=== PATIENT | female | born 1950 | race Caucasian/White ===

== ENCOUNTER 2016-11-14 10:59 | Inpatient (IN) | payer OTHER ==
[~2016-11-14] VITALS: Ht 157.5 cm; Wt 103.1 kg
[~2016-11-14 10:59] MED LIST: AMLODIPINE-VAL1 EAC1 PO; APRESOLINE50 MG PO; AUGMENTIN875 MG PO; BYSTOLIC5 MG PO; CLOPIDOGREL75 MG PO; EXFORGE 10/11 TABLET PO; HYDROCHLOROTHIA50 MG PO; K-Dur PO; LISINOPRIL10 MG PO; LOPRESSOR25 MG PO; NICOTINE PATCH1 EAC1 TD; NIFEDIPINE ER60 MG PO; NOHOMEMEDS; Norvasc PO; PRAVASTATIN SOD40 MG PO; PREDNISONE10 MG PO; PROVENTIL HFA6.7 GM IH
[2016-11-14 12:23] LABS: EOSINOPHIL (%) 0.1 % (0-5); HEMATOCRIT 51.8 % (36.0-46.0); IMMATURE GRANULOCYTE (%) 0.4 % (0.0-0.7); IMMATURE GRANULOCYTE COUNT 0.1 K/uL; INSTRUMENT ABS NEUTROPHIL CT 10.3 K/uL; LYMPHOCYTE COUNT 1.1 K/uL (1.0-2.8); MCH 25.6 PG (29.0-34.0); MCHC 31.5 G/DL (30.0-36.0); MCV 81.4 FL (83-99); MEAN PLAT.VOLUME 9.8 uM^3 (9.5-12.4); MONOCYTE (%) 3.9 % (3-12); MONOCYTE COUNT 0.5 K/uL (0-0.8); NEUTROPHIL (%) 86.3 % (45-76); NEUTROPHIL COUNT 10.3 K/uL (1.8-6.4); PLATELET COUNT 251 K/uL (156-360); RBC DIS.WIDTH-CV 14.7 % (11.8-14.6); RBC DIS.WIDTH-SD 42.5 % (39-53); RED BLOOD COUNT 6.36 M/uL (3.80-5.20); WHITE BLOOD COUNT 11.9 K/uL (4.1-10.2)
[2016-11-14 12:33] LABS: CHLORIDE 98 mEq/L (99-109); POTASSIUM 4.2 mEq/L (3.7-5.4); SODIUM 136 mEq/L (136-147)
[2016-11-14 12:35] LABS: GLUCOSE 115 mg/dL (70-99)
[2016-11-14 12:37] LABS: ANION GAP 17 MEQ/L (2-14)
[2016-11-14 12:39] LABS: GFR ESTIMATE (CALCULATED) > 59 mL/min/
[2016-11-14 12:40] LABS: UREA NITROGEN (BUN) 8 mg/dL (9-23)
[2016-11-14 12:43] LABS: TROP-I INTERPRETATION NEGATIVE; TROPONIN-I 0.03 ng/mL (0.0-0.30)
[2016-11-14 14:08] LABS: ADD MIUA? YES; BILIRUBIN NEGATIVE; BLOOD SMALL; COLOR YELLOW ((YELLOW)); GLUCOSE (STRIP) 150; KETONES NEGATIVE; LEUKOCYTES NEGATIVE; NITRITE NEGATIVE; PROTEIN (STRIP) 100; SPECIFIC GRAVITY 1.015 (1.000-1.030); UROBILINOGEN 0.2 MG/DL (0.2-1.0)
[2016-11-14 14:16] LABS: BACTERIA 3+ /HPF; EPITHELIAL CELLS RARE /HPF; HYALINE CASTS 15-20 /LPF; MUCUS NONE SEEN /LPF; RED BLOOD CELLS 0-5 /HPF (0-5); WHITE BLOOD CELLS CLUMP FEW /HPF (0-5)
[2016-11-14] MEDS ORDERED: PLAVIX75 MG PO (16:07)
[2016-11-14] MEDS ORDERED: LOVASTATIN20 MG PO (16:08)
[2016-11-14] MEDS ORDERED: PRAVACHOL40 MG PO (16:08)
[2016-11-14] MEDS ORDERED: LOPRESSOR25 MG PO (16:08)
[2016-11-14] MEDS ORDERED: LISINOPRIL10 MG PO (16:09)
[2016-11-14] MEDS ORDERED: NIFEDIPINE ER60 MG PO (16:09)
[2016-11-14] MEDS ORDERED: APRESOLINE50 MG PO (16:10)
[2016-11-14 21:59] VITALS: BP 200/110
[2016-11-14 23:20] VITALS: BP 187/118
[2016-11-15 00:24] VITALS: BP 190/93
[2016-11-15 05:56] LABS: HEMATOCRIT 46.3 % (36.0-46.0); MCH 26.6 PG (29.0-34.0); MCHC 32.6 G/DL (30.0-36.0); MCV 81.5 FL (83-99); MEAN PLAT.VOLUME 10.6 uM^3 (9.5-12.4); PLATELET COUNT 283 K/uL (156-360); RBC DIS.WIDTH-CV 15.3 % (11.8-14.6); RBC DIS.WIDTH-SD 44.6 % (39-53); RED BLOOD COUNT 5.68 M/uL (3.80-5.20); WHITE BLOOD COUNT 11.1 K/uL (4.1-10.2)
[2016-11-15 06:03] VITALS: BP 189/84
[2016-11-15 06:27] LABS: ANION GAP 10 MEQ/L (2-14); CHLORIDE 100 MEQ/L (99-109); GFR ESTIMATE (CALCULATED) 47 mL/min/; GLUCOSE 132 mg/dL (70-99); HDL CHOLESTEROL 39 MG/DL (Desirable>=50); LDL CHOLESTEROL 146 mg/dL (Desirable<100); NON-HDL CHOLESTEROL 174 mg/dL (Desirable<160); SAMPLE HEMOLYSIS CHECK 1; SAMPLE ICTERIC CHECK 0; SAMPLE LIPEMIA CHECK 0; SODIUM 137 MEQ/L (136-147); TOTAL CHOLESTEROL 213 mg/dL (Desirable<200); TRIGLYCERIDES 141 MG/DL (Normal: <150)
[2016-11-15 06:28] LABS: UREA NITROGEN (BUN) 21 mg/dL (9-23)
[2016-11-15 07:13] VITALS: BP 124/58
[2016-11-15 07:40] LABS: Estimated Average Glucose 117 mg/dL (70-123); HEMOGLOBIN A1c (GLYCOHEMOGLOB) 5.7 % HGB (Below 5.7)
[2016-11-15 11:16] VITALS: BP 137/67
[2016-11-15 15:24] VITALS: BP 163/83
[2016-11-15 20:05] VITALS: BP 132/67
[2016-11-16 04:02] VITALS: BP 143/70
[2016-11-16 06:13] LABS: EOSINOPHIL (%) 0.2 % (0-5); HEMATOCRIT 45.9 % (36.0-46.0); IMMATURE GRANULOCYTE (%) 0.5 % (0.0-0.7); LYMPHOCYTE COUNT 1.1 K/uL (1.0-2.8); MCH 25.7 PG (29.0-34.0); MCHC 31.2 G/DL (30.0-36.0); MCV 82.4 FL (83-99); MEAN PLAT.VOLUME 10.2 uM^3 (9.5-12.4); MONOCYTE (%) 2.5 % (3-12); MONOCYTE COUNT 0.2 K/uL (0-0.8); NEUTROPHIL (%) 83.7 % (45-76); PLATELET COUNT 271 K/uL (156-360); RBC DIS.WIDTH-CV 15.2 % (11.8-14.6); RED BLOOD COUNT 5.57 M/uL (3.80-5.20); WHITE BLOOD COUNT 8.4 K/uL (4.1-10.2)
[2016-11-16 06:40] LABS: ALKALINE PHOSPHATASE 104 IU/L (3-129); ANION GAP 9 MEQ/L (2-14); CHLORIDE 102 MEQ/L (99-109); GFR ESTIMATE (CALCULATED) 52 mL/min/; GLUCOSE 134 mg/dL (70-99); POTASSIUM 4.5 MEQ/L (3.7-5.4); SAMPLE HEMOLYSIS CHECK 0; SAMPLE ICTERIC CHECK 0; SAMPLE LIPEMIA CHECK 0; SODIUM 137 MEQ/L (136-147); TOTAL BILIRUBIN 0.6 MG/DL (0.0-1.0); UREA NITROGEN (BUN) 32 mg/dL (9-23)
[2016-11-16 07:25] VITALS: BP 158/74
[2016-11-16 11:09] VITALS: BP 129/69
[2016-11-16 15:06] VITALS: BP 155/83
[2016-11-16 19:45] VITALS: BP 186/86
[2016-11-17] VITALS (7 sets, daily range): BP systolic 130–175; BP diastolic 58–86
[2016-11-18] VITALS (7 sets, daily range): BP systolic 139–184; BP diastolic 72–83
[2016-11-19 00:22] VITALS: BP 170/77
[2016-11-19 07:02] LABS: EOSINOPHIL (%) 0 % (0-5); HEMATOCRIT 46.3 % (36.0-46.0); IMMATURE GRANULOCYTE (%) 0.4 % (0.0-0.7); LYMPHOCYTE COUNT 1.6 K/uL (1.0-2.8); MCH 26.5 PG (29.0-34.0); MCHC 32.4 G/DL (30.0-36.0); MCV 81.8 FL (83-99); MEAN PLAT.VOLUME 10.1 uM^3 (9.5-12.4); MONOCYTE (%) 4.3 % (3-12); MONOCYTE COUNT 0.4 K/uL (0-0.8); NEUTROPHIL (%) 77.5 % (45-76); PLATELET COUNT 309 K/uL (156-360); RBC DIS.WIDTH-CV 15.1 % (11.8-14.6); RED BLOOD COUNT 5.66 M/uL (3.80-5.20)
[2016-11-19 07:29] LABS: ANION GAP 9 MEQ/L (2-14); CHLORIDE 101 MEQ/L (99-109); GFR ESTIMATE (CALCULATED) > 59 mL/min/; GLUCOSE 126 mg/dL (70-99); SAMPLE HEMOLYSIS CHECK 0; SAMPLE ICTERIC CHECK 0; SAMPLE LIPEMIA CHECK 0; SODIUM 134 MEQ/L (136-147); UREA NITROGEN (BUN) 33 mg/dL (9-23)
[2016-11-19 08:14] VITALS: BP 130/78
[2016-11-19 15:09] VITALS: BP 173/78
[2016-11-19 20:14] VITALS: BP 163/95
[2016-11-20 01:08] VITALS: BP 150/88
[2016-11-20 08:00] VITALS: BP 183/96
[2016-11-20 10:30] VITALS: BP 190/90
[2016-11-20 12:30] VITALS: BP 160/70
[2016-11-20] MEDS ORDERED: LEVETIRACETAM500 MG PO (13:49)
[2016-11-20] MEDS ORDERED: HYDRALAZINE HC100 MG PO (13:50)
[2016-11-20] MEDS ORDERED: NIFEDIPINE ER90 MG PO (13:52)
[2016-11-20] MEDS ORDERED: DEXAMETHASONE4 MG PO (13:52)
[2016-11-20] MEDS ORDERED: TRAMADOL HCL E100 M1 PO (13:53)
[2016-11-20 16:08] VITALS: BP 156/81
== END 2016-11-20 19:45 | DRG 65 ==
LOC: EME 10:59 → EDOF 18:16 → 5SOUTH 18:16 → CANRESERV 18:18 → ENRESERV 18:18 → CANRESERV 18:33 → ENRESERV 19:44 → 5SOUTH 21:32
PROVIDERS: Emergency Medicine; Family Medicine; Internal Medicine
DX: I61.0 Nontraumatic intracerebral hemorrhage in hemisphere, subcortical (principal); G81.91 Hemiplegia, unspecified affecting right dominant side; I16.0 Hypertensive urgency; I10 Essential (primary) hypertension; N39.0 Urinary tract infection, site not specified; M48.56XA Collapsed vertebra, not elsewhere classified, lumbar region, initial encounter for fracture; W19.XXXA Unspecified fall, initial encounter; R47.02 Dysphasia; R47.81 Slurred speech; Z91.19 Patient's noncompliance with other medical treatment and regimen; B37.9 Candidiasis, unspecified; J44.9 Chronic obstructive pulmonary disease, unspecified; J90 Pleural effusion, not elsewhere classified; E11.9 Type 2 diabetes mellitus without complications; E66.01 Morbid (severe) obesity due to excess calories; E78.5 Hyperlipidemia, unspecified; R26.2 Difficulty in walking, not elsewhere classified; R41.82 Altered mental status, unspecified; R68.84 Jaw pain; G89.29 Other chronic pain; M47.9 Spondylosis, unspecified; M54.16 Radiculopathy, lumbar region; M79.604 Pain in right leg; F17.210 Nicotine dependence, cigarettes, uncomplicated; Z68.41 Body mass index [BMI] 40.0-44.9, adult; Z86.73 Personal history of transient ischemic attack (TIA), and cerebral infarction without residual deficits
CPT/HCPCS: 70450; 71010; 72100; 80048; 80053; 80061; 81003; 83036; 84484; 85025; 85027; 93005; 97530 GO; 97530 GP; 99281; 99285; J0360; J0696; J1100; J7050

== ENCOUNTER 2017-09-10 11:03 | Inpatient (IN) | payer OTHER ==
[~2017-09-10] VITALS: Ht 157.5 cm; Wt 90.8 kg
[~2017-09-10 11:03] MED LIST changes: +DEXAMETHASONE4 MG PO; +DULCOLAX10 MG PR; +FLEET ENEMA-AD118 ML PR; +HYDRALAZINE HC100 MG PO; +LEVETIRACETAM500 MG PO; +LEXAPRO10 MG PO; +LOVASTATIN20 MG PO; +MILK OF MAGN PO; +NIFEDIPINE ER90 MG PO; +NYSTOP60 GM TP; +PANTOPRAZOLE SO40 MG PO; +TRAMADOL HCL E100 M1 PO; +TRAMADOL HCL50 MG PO; +ULTRAM ER100 MG PO
[2017-09-10 11:50] LABS: BASOPHIL (%) 0.4 % (0-1); EOSINOPHIL COUNT 0.1 K/uL (0-0.3); HEMATOCRIT 41.5 % (36.0-46.0); HEMOGLOBIN 13.1 G/DL (11.9-15.5); IMMATURE GRANULOCYTE (%) 0.4 % (0.0-0.7); LYMPHOCYTE (%) 30.3 % (15-42); LYMPHOCYTE COUNT 2.2 K/uL (1.0-2.8); MCH 25.7 PG (29.0-34.0); MCHC 31.6 G/DL (30.0-36.0); MCV 81.4 FL (83-99); MONOCYTE (%) 3.6 % (3-12); MONOCYTE COUNT 0.3 K/uL (0-0.8); NEUTROPHIL (%) 64.3 % (45-76); NEUTROPHIL COUNT 4.7 K/uL (1.8-6.4); PLATELET COUNT 290 K/uL (156-360); RBC DIS.WIDTH-CV 15.5 % (11.8-14.6); WHITE BLOOD COUNT 7.2 K/uL (4.1-10.2)
[2017-09-10 11:57] LABS: INTER. NORMALIZED RATIO 1.1
[2017-09-10 11:59] LABS: AMYLASE 25 IU/L (1-118); CHLORIDE 106 mEq/L (99-109); POTASSIUM 3.3 mEq/L (3.7-5.4); SODIUM 141 mEq/L (136-147)
[2017-09-10 12:00] LABS: PTT 31.6 SEC (25-37)
[2017-09-10 12:01] LABS: GLUCOSE 130 mg/dL (70-99)
[2017-09-10 12:04] LABS: SERUM ETHYL ALCOHOL < 10 mg/dL
[2017-09-10 12:05] LABS: CREATININE 0.8 mg/dL (0.6-1.3); GFR ESTIMATE (CALCULATED) > 59 mL/min/
[2017-09-10 12:06] LABS: UREA NITROGEN (BUN) 15 mg/dL (9-23)
[2017-09-10 12:08] LABS: LIPASE 21 U/L (1.0-51.0)
[2017-09-10 12:10] LABS: TROP-I INTERPRETATION NEGATIVE; TROPONIN-I < 0.01 ng/mL (0.0-0.30)
[2017-09-10 12:23] LABS: APPEARANCE SL.HAZY ((CLEAR)); BILIRUBIN NEGATIVE; BLOOD SMALL; COLOR YELLOW ((YELLOW)); GLUCOSE (STRIP) NEGATIVE; KETONES NEGATIVE; LEUKOCYTES TRACE; NITRITE NEGATIVE; PROTEIN (STRIP) 30; UROBILINOGEN 0.2 MG/DL (0.2-1.0)
[2017-09-10 12:25] LABS: BACTERIA NONE SEEN /HPF; EPITHELIAL CELLS RARE /HPF; HYALINE CASTS 0-5 /LPF; MUCUS 2+ /LPF; RED BLOOD CELLS 0-5 /HPF (0-5); UCUL ADDED? YES
[2017-09-10 12:35] LABS: AMPHETAMINE NEGATIVE (500 ng/mL); BARBITURATES NEGATIVE (200 ng/mL); BENZODIAZEPINES NEGATIVE (150 ng/mL); BUPRENORPHINE NEGATIVE (10 ng/mL); COCAINE NEGATIVE (150 ng/mL); METHADONE NEGATIVE (200 ng/mL); METHAMPHETAMINE NEGATIVE (500 ng/mL); OPIATES (MORPHINE) NEGATIVE (100 ng/mL); OXYCODONE NEGATIVE (100 ng/mL); PHENCYCLIDINE NEGATIVE (25 ng/mL); PROPOXYPHENE NEGATIVE (300 ng/mL); THC CANNABINOIDS NEGATIVE (50 ng/mL); TRICYCLIC ANTIDEPRESSANTS NEGATIVE (300 ng/mL)
[2017-09-10 17:55] VITALS: BP 166/101
[2017-09-10 18:02] LABS: HDL CHOLESTEROL 34 MG/DL (Desirable>=50); LDL CHOLESTEROL 86 mg/dL (Desirable<100); NON-HDL CHOLESTEROL 115 mg/dL (Desirable<160); TOTAL CHOLESTEROL 149 mg/dL (Desirable<200); TRIGLYCERIDES 144 MG/DL (Normal: <150)
[2017-09-10] MEDS ORDERED: KEPPRA500 MG PO (18:39)
[2017-09-10] MEDS ORDERED: LOPRESSOR25 MG PO (18:39)
[2017-09-10] MEDS ORDERED: PROCARDIA XL60 MG PO (18:39)
[2017-09-10] MEDS ORDERED: PRAVACHOL40 MG PO (18:39)
[2017-09-10] MEDS ORDERED: PLAVIX75 MG PO (18:39)
[2017-09-10] MEDS ORDERED: PROTONIX40 MG PO (18:40)
[2017-09-10] MEDS ORDERED: TRAMADOL HCL50 MG PO (18:40)
[2017-09-10] MEDS ORDERED: MIRTAZAPINE30 MG PO (18:41)
[2017-09-10 23:47] VITALS: BP 121/93
[2017-09-11 07:39] VITALS: BP 116/55
[2017-09-11 10:38] LABS: HEMOGLOBIN A1c (GLYCOHEMOGLOB) 5.4 % (Below 5.7)
[2017-09-11 19:48] VITALS: BP 120/64
[2017-09-12 00:14] VITALS: BP 121/74
[2017-09-12 03:37] VITALS: BP 124/63
[2017-09-12 06:17] LABS: CHLORIDE 103 MEQ/L (99-109); CREATININE 0.8 MG/DL (0.6-1.3); GFR ESTIMATE (CALCULATED) > 59 mL/min/; GLUCOSE 110 mg/dL (70-99); POTASSIUM 3.1 MEQ/L (3.7-5.4); SODIUM 137 MEQ/L (136-147); UREA NITROGEN (BUN) 15 mg/dL (9-23)
[2017-09-12 07:48] VITALS: BP 103/73
[2017-09-12 12:36] VITALS: BP 126/77
[2017-09-12 16:11] VITALS: BP 120/74
[2017-09-12 20:00] VITALS: BP 133/64
[2017-09-13] VITALS (7 sets, daily range): BP systolic 106–138; BP diastolic 53–79
[2017-09-13 06:32] LABS: CHLORIDE 106 MEQ/L (99-109); GFR ESTIMATE (CALCULATED) 58 mL/min/; GLUCOSE 116 mg/dL (70-99); POTASSIUM 3.6 MEQ/L (3.7-5.4); SODIUM 139 MEQ/L (136-147); UREA NITROGEN (BUN) 22 mg/dL (9-23)
[2017-09-14 04:03] VITALS: BP 121/74
[2017-09-14 07:21] VITALS: BP 131/61
[2017-09-14 11:01] VITALS: BP 131/68
[2017-09-14 14:17] LABS: CHLORIDE 108 MEQ/L (99-109); CREATININE 0.7 MG/DL (0.6-1.3); GFR ESTIMATE (CALCULATED) > 59 mL/min/; GLUCOSE 105 mg/dL (70-99); SODIUM 139 MEQ/L (136-147); UREA NITROGEN (BUN) 15 mg/dL (9-23)
[2017-09-14 14:18] LABS: POTASSIUM 5.3 MEQ/L (3.7-5.4)
[2017-09-14 15:18] VITALS: BP 176/78
[2017-09-14 19:14] VITALS: BP 128/61
[2017-09-14 23:45] VITALS: BP 117/55
[2017-09-15 03:30] VITALS: BP 138/58
[2017-09-15 07:40] VITALS: BP 125/57
[2017-09-15 11:44] VITALS: BP 125/58
== END 2017-09-15 16:31 | DRG 305 ==
LOC: EME 11:03 → EDOF 15:08 → 5SOUTH 15:08 → ENRESERV 15:37 → CANRESERV 15:37 → ENRESERV 15:39 → 5SOUTH 17:32
PROVIDERS: Emergency Medicine; Family Medicine
DX: I16.0 Hypertensive urgency (principal); I69.354 Hemiplegia and hemiparesis following cerebral infarction affecting left non-dominant side; M48.56XA Collapsed vertebra, not elsewhere classified, lumbar region, initial encounter for fracture; F05 Delirium due to known physiological condition; R41.82 Altered mental status, unspecified; R47.81 Slurred speech; I65.22 Occlusion and stenosis of left carotid artery; E66.01 Morbid (severe) obesity due to excess calories; E87.6 Hypokalemia; E78.5 Hyperlipidemia, unspecified; E86.0 Dehydration; F17.201 Nicotine dependence, unspecified, in remission; I10 Essential (primary) hypertension; I48.0 Paroxysmal atrial fibrillation; J44.9 Chronic obstructive pulmonary disease, unspecified; R53.1 Weakness; Z74.01 Bed confinement status; Z91.14 Patient's other noncompliance with medication regimen; Z68.36 Body mass index [BMI] 36.0-36.9, adult; Z88.5 Allergy status to narcotic agent; Z88.6 Allergy status to analgesic agent
CPT/HCPCS: 70450; 70496; 70498; 70551; 80048; 80061; 81003; 82150; 82948; 83036; 83690; 84484; 85025; 85610; 85730; 86850; 86900; 86901; 87086; 92610 GN; 93005; 99281; 99285; G0480; J0360; J1953; J3480; J7050